=== PATIENT | female | born 1985 | race Caucasian/White ===

== ENCOUNTER 2016-03-17 20:02 | Emergency (ER) | payer MEDICAID, OTHER ==
[~2016-03-17 20:02] MED LIST: MACR100C PO; ZOFR4TAB3 SL
[2016-03-17 20:06] VITALS: BP 110/63; PULSE 108; RESP 16; TEMP 102.6; O2SAT 96
[2016-03-17] MEDS ORDERED: SERT-132 PO (21:06)
--- NOTE | 2016-03-17 21:13 | PD ---
HPI Chief Complaint: Flank/Kidney Pain Time Seen by Provider: 20:59 Travel History International Travel<30 days: No Contact w/Intl Traveler<30days: No Traveled to known affect area: No History of Present Illness HPI 30-year-old female presents to the emergency department for complaint of 3 days of "kidney pain" and fever with chills. Patient is also had dizziness and today 2 episodes of non-bilious [id number] nonbloody emesis. No report of sore throat earache sinus pressure drainage cough congestion chest pain abdominal pain diarrhea dysuria frequency urgency or skin rash. Last menstrual period was 02/19/16 and normal for her patient denies . Patient has had no vaginal discharge or bleeding. Ab1. PFSH Past Medical History Narrative Medical Anxiety depression Ab1 tonsillectomy tobacco use alcohol use nursing notes reviewed Anxiety: Yes Depression: Yes Immunizations Current: Yes : 2 Para: 1 Miscarriage: 1 : 0 Past Surgical History Tonsillectomy: Yes Social History Alcohol Use: Yes (glass wine qd) Tobacco Use: Yes (2 cigarettes/day) Substance Use: No Allergies-Medications (Allergen,Severity, Reaction): Coded Allergies: No Known Allergies (Unverified , 03/17/16) Reported Meds & Prescriptions Reported Meds & Active Scripts Active Reported Sertraline (Sertraline HCl) 50 Mg Tab 50 Mg PO DAILY Review of Systems Except as stated in HPI: all other systems reviewed are Neg General / Constitutional: Positive: Fever, Chills HENT: No: Sore Throat, Congestion Cardiovascular: No: Chest Pain or Discomfort Respiratory: No: Shortness of Breath Gastrointestinal: Positive: Nausea, Vomiting (x2), No: Abdominal Pain, Hematemesis, Hematochezia Genitourinary: Positive: Flank Pain, No: Urgency, Frequency, Dysuria, Hematuria, Pelvic Pain, Discharge, Vaginal Bleeding Musculoskeletal: No: Myalgias, Arthralgias Skin: No Rash Neurologic: No: Weakness Psychiatric: No: Anxiety Hematologic/Lymphatic: No: Lymph Node Enlargement Physical Exam Narrative GENERAL: Well-developed well-nourished female in no acute distress no respiratory distress; triage vital signs remarkable for mild tachycardia heart rate 108 and fever temperature 102.6F SKIN: Warm and dry. HEAD: Normocephalic. EYES: No scleral icterus. No injection or drainage. ENT: Mucous members moist airway is patent no pharyngeal erythema edema or exudative change tympanic membranes no redness dullness or loss of landmarks NECK: Supple, trachea midline. No JVD or lymphadenopathy. No meningismus no nuchal rigidity CARDIOVASCULAR: Regular rate and rhythm without murmurs, gallops, or rubs. RESPIRATORY: Breath sounds equal bilaterally. No accessory muscle use. GASTROINTESTINAL: Abdomen soft, non-tender, nondistended. MUSCULOSKELETAL: No cyanosis, or edema. BACK: Nontender without obvious deformity. Bilateral CVA tenderness to palpation and percussion. Data Data Last Documented VS Vital Signs Date Time Temp Pulse Resp B/P Pulse Ox O2 Delivery O2 Flow Rate FiO2 03/17/16 21:24 100.1 03/17/16 20:06 108 16 110/63 96 Room Air Orders Complete Blood Count With Diff (03/17/16 20:17) Comprehensive Metabolic Panel (03/17/16 20:17) Urinalysis - C+S If Indicated (03/17/16 20:17) Ed Urine Pregnancytest Poc (03/17/16 21:05) Sodium Chlor 0.9% 1000 Ml Inj (Ns 1000 M (03/17/16 21:15) Blood Culture (03/17/16 21:05) Ceftriaxone Inj (Rocephin Inj) (03/17/16 21:15) Acetaminophen (Tylenol) (03/17/16 21:15) Urine Culture (03/17/16 20:34) Ct Abd/Pel W/O Iv Contrast (03/17/16 ) Potassium Chloride (Kcl) (03/17/16 23:00) Ketorolac Inj (Toradol Inj) (03/17/16 23:00) Labs Laboratory Tests Test 03/17/16 03/17/16 20:29 20:34 White Blood Count 9.9 TH/MM3 Red Blood Count 4.11 MIL/MM3 Hemoglobin 12.9 GM/DL Hematocrit 36.4 % Mean Corpuscular Volume 88.6 FL Mean Corpuscular Hemoglobin 31.3 PG Mean Corpuscular Hemoglobin 35.3 % Concent Red Cell Distribution Width 14.3 % Platelet Count 250 TH/MM3 Mean Platelet Volume 7.5 FL Neutrophils (%) (Auto) 66.6 % Lymphocytes (%) (Auto) 4.8 % Monocytes (%) (Auto) 0.0 % Eosinophils (%) (Auto) 28.6 % Basophils (%) (Auto) 0.0 % Neutrophils # (Auto) 6.6 TH/MM3 Lymphocytes # (Auto) 0.5 TH/MM3 Monocytes # (Auto) 0.0 TH/MM3 Eosinophils # (Auto) 2.8 TH/MM3 Basophils # (Auto) 0.0 TH/MM3 CBC Comment AUTO DIFF Sodium Level 136 MEQ/L Potassium Level 3.3 MEQ/L Chloride Level 103 MEQ/L Carbon Dioxide Level 22.2 MEQ/L Anion Gap 11 MEQ/L Blood Urea Nitrogen 8 MG/DL Creatinine 0.64 MG/DL Estimat Glomerular Filtration 108 ML/MIN Rate Random Glucose 103 MG/DL Calcium Level 8.2 MG/DL Total Bilirubin 0.8 MG/DL Aspartate Amino Transf 9 U/L (AST/SGOT) Alanine Aminotransferase 11 U/L (ALT/SGPT) Alkaline Phosphatase 80 U/L Total Protein 7.4 GM/DL Albumin 3.5 GM/DL Urine Color YELLOW Urine Turbidity CLEAR Urine pH 6.0 Urine Specific [place] 1.008 Urine Protein NEG mg/dL Urine Glucose (UA) NEG mg/dL Urine Ketones NEG mg/dL Urine Occult Blood TRACE Urine Nitrite NEG Urine Bilirubin NEG Urine Urobilinogen 2.0 MG/DL Urine Leukocyte Esterase MOD Urine RBC 2 /hpf Urine WBC 19 /hpf Urine Squamous Epithelial 1 /hpf Cells Urine Bacteria RARE /hpf Urine Hyaline Casts 1 /lpf Microscopic Urinalysis Comment CULTURE INDICATED MDM Medical Decision Making Medical Screen Exam Complete: Yes Emergency Medical Condition: Yes Medical Record Reviewed: Yes Interpretation(s) Laboratory Tests Test 03/17/16 03/17/16 20:29 20:34 White Blood Count 9.9 TH/MM3 Red Blood Count 4.11 MIL/MM3 Hemoglobin 12.9 GM/DL Hematocrit 36.4 % Mean Corpuscular Volume 88.6 FL Mean Corpuscular Hemoglobin 31.3 PG Mean Corpuscular Hemoglobin 35.3 % Concent Red Cell Distribution Width 14.3 % Platelet Count 250 TH/MM3 Mean Platelet Volume 7.5 FL Neutrophils (%) (Auto) 66.6 % Lymphocytes (%) (Auto) 4.8 % Monocytes (%) (Auto) 0.0 % Eosinophils (%) (Auto) 28.6 % Basophils (%) (Auto) 0.0 % Neutrophils # (Auto) 6.6 TH/MM3 Lymphocytes # (Auto) 0.5 TH/MM3 Monocytes # (Auto) 0.0 TH/MM3 Eosinophils # (Auto) 2.8 TH/MM3 Basophils # (Auto) 0.0 TH/MM3 CBC Comment AUTO DIFF Sodium Level 136 MEQ/L Potassium Level 3.3 MEQ/L Chloride Level 103 MEQ/L Carbon Dioxide Level 22.2 MEQ/L Anion Gap 11 MEQ/L Blood Urea Nitrogen 8 MG/DL Creatinine 0.64 MG/DL Estimat Glomerular Filtration 108 ML/MIN Rate Random Glucose 103 MG/DL Calcium Level 8.2 MG/DL Total Bilirubin 0.8 MG/DL Aspartate Amino Transf 9 U/L (AST/SGOT) Alanine Aminotransferase 11 U/L (ALT/SGPT) Alkaline Phosphatase 80 U/L Total Protein 7.4 GM/DL Albumin 3.5 GM/DL Urine Color YELLOW Urine Turbidity CLEAR Urine pH 6.0 Urine Specific [place] 1.008 Urine Protein NEG mg/dL Urine Glucose (UA) NEG mg/dL Urine Ketones NEG mg/dL Urine Occult Blood TRACE Urine Nitrite NEG Urine Bilirubin NEG Urine Urobilinogen 2.0 MG/DL Urine Leukocyte Esterase MOD Urine RBC 2 /hpf Urine WBC 19 /hpf Urine Squamous Epithelial 1 /hpf Cells Urine Bacteria RARE /hpf Urine Hyaline Casts 1 /lpf Microscopic Urinalysis Comment CULTURE INDICATED Last Impressions Abdomen/Pelvis CT 03/17/16 0000 Signed Impressions: Service Date/Time: Thursday, March 17, 2016 22:12 - CONCLUSION: Mild constipation. Trace free fluid in the pelvis. No obstruction. No free air. Marshall Jones MD Differential Diagnosis UTI pyelonephritis sepsis viral syndrome dehydration Narrative Course IV access obtained specimens collected and sent for resulting patient administered normal saline 1 L bolus along with Rocephin presumptively for UTI possible pyelonephritis; patient has been taking acetaminophen and ibuprofen as administered by her significant other but does not know the time of her last dose of antipyretic medication. At 10:50 PM patient's clinical improved and stable for outpatient management Diagnosis Primary Impression: UTI (urinary tract infection) Referrals: Primary Care Physician 2 days Patient Instructions: General Instructions Departure Forms: Tests/Procedures, Work Release Special Instructions: no work x 2 days Additional Instructions: Increase fluid hydration Take Tylenol/acetaminophen every 4 hours for fever 100.4F or greater Take ibuprofen/Advil/Motrin every 6-8 hours as needed for fever 100.4F or greater Complete course of antibiotic as prescribed Return to the emergency department for any concerns or change in condition Med/Other Pt SpecificInfo: Prescription(s) given Scripts Phenazopyridine (Pyridium)100 Mg [id number] Mg PO Q8H PRN (DYSURIA) #6 TAB Ref 0 Prov:Yuly Byrnes MD 03/17/16 Ciprofloxacin (Cipro)500 Mg [id number] Mg PO BID 7 Days Ref 0 Prov:Yuly Byrnes MD 03/17/16 Disposition: 01 DISCHARGE HOME Condition: Stable Yuly Byrnes MD Mar 17, 2016 21:13
[2016-03-17] MEDS ORDERED: cefTRIAXone INJ 1,000 MG in SODIUM CHLORIDE 0.9% INJ 100 ML IV ONE (21:15)
[2016-03-17] MEDS ORDERED: ACETAMINOPHEN 325 MG TAB PO ONE (21:15)
[2016-03-17] MEDS ORDERED: SODIUM CHLOR 0.9% 1000 ML INJ 1,000 ML IV ONE (21:15)
[2016-03-17 21:22] LABS: BACTERIA, URINE RARE /hpf; BLOOD, URINE TRACE (NEG); COMMENT (UR) CULTURE INDICATED; CULTURE IF INDICATED CULTURE INDICATED; GLUCOSE,URINE NEG (NEG); HYALINE CAST, URINE 1 /lpf (RARE); KETONE, URINE NEG (NEG); NITRITE,URINE NEG (NEG); SQUAMOUS EPITHELIAL CELL URINE 1 /hpf (0-5); URINE COLOR YELLOW (YELLW/STRAW)
[2016-03-17 21:24] VITALS: TEMP 100.1
[2016-03-17 21:38] LABS: ANION GAP 11 MEQ/L (5-15); AST (GOT) 9 U/L (15-37); BICARBONATE 22.2 MEQ/L (21.0-32.0); BLOOD UREA NITROGEN 8 MG/DL (7-18); CHLORIDE 103 MEQ/L (98-107); GLOMERULAR FILTRATION RATE 108 ML/MIN (>89); POTASSIUM 3.3 MEQ/L (3.5-5.1); SODIUM (NA) 136 MEQ/L (136-145)
[2016-03-17 21:41] LABS: ALKALINE PHOSPHATASE 80 U/L (45-117); ALT (GPT) 11 U/L (10-53); AUTOMATED NEUTROPHIL # 6.6 TH/MM3 (1.8-7.7); EOSINOPHIL # 2.8 TH/MM3 (0-0.4); EOSINOPHIL % 28.6 % (0.0-4.0); HEMATOCRIT 36.4 % (35.0-46.0); LYMPH % 4.8 % (9.0-44.0); LYMPHOCYTE # 0.5 TH/MM3 (1.0-4.8); MEAN CELL VOLUME 88.6 FL (80.0-100.0); MEAN CORPUSCULAR HEMOGLOBIN 31.3 PG (27.0-34.0); MEAN CORPUSCULAR HGB CONC 35.3 % (32.0-36.0); NEUT % 66.6 % (16.0-70.0); PLATELET COUNT 250 TH/MM3 (150-450); RED BLOOD COUNT 4.11 MIL/MM3 (4.00-5.30); RED CELL DISTRIBUTION WIDTH 14.3 % (11.6-17.2); TOTAL BILIRUBIN ADULT 0.8 MG/DL (0.2-1.0); WHITE BLOOD COUNT 9.9 TH/MM3 (4.0-11.0)
[2016-03-17 21:47] LABS: HEMO FLAGS AUTO DIFF
--- NOTE | 2016-03-17 22:41 | RADRPT ---
EXAM DATE/TIME: 03/17/2016 22:12 [facility] COMPARISON: No previous studies available for comparison. INDICATIONS : Right-sided flank pain. ORAL CONTRAST: No oral contrast ingested. RADIATION DOSE: 5.44 CTDIvol (mGy) MEDICAL HISTORY : None SURGICAL HISTORY : None. ENCOUNTER: Initial ACUITY: 1 day PAIN SCALE: 8/10 LOCATION: Right flank TECHNIQUE: Volumetric scanning of the abdomen and pelvis was performed. Using automated exposure control and ad justment of the mA and/or kV according to patient size, radiation dose was kept as low as reasonably achievable to obtain optimal diagnostic quality images. FINDINGS: Lung bases are clear. No acute findings in the liver, spleen, adrenals, kidneys or pancreas. Mild con stipation. Small amount of free fluid in the pelvis. No free air. CONCLUSION: Mild constipation. Trace free fluid in the pelvis. No obstruction. No free air. Marshall Jones MD on March 17, 2016 at 22:37 Board Certified Radiologist. This report was verified electronically.
[2016-03-17] MEDS ORDERED: PHEN0.4T PO (22:50)
[2016-03-17] MEDS ORDERED: CIPR-9 PO (22:50)
[2016-03-17 23:00] VITALS: BP 105/62; PULSE 70; RESP 16; TEMP 98.7; O2SAT 96
[2016-03-17] MEDS ORDERED: KETOROLAC TROMETHAMINE 30 MG/ML (IVP) VIAL IV PUSH ONE (23:00)
[2016-03-17] MEDS ORDERED: POTASSIUM CHLORIDE 20 MEQ CONTROLLED RELEASE TAB PO ONE (23:00)
[2016-03-17 23:59] LABS: BANDS 2 % (0-6); NEUTROPHIL # MANUAL DIFF 8.8 TH/MM3 (1.8-7.7); PLATELET ESTIMATE SMEAR NORMAL (NORMAL); PLATELET MORPHOLOGY NORMAL (NORMAL); POLYS (SEG NEUTROPHILS) 87 % (16-70); SCAN/DIFF FINAL DIFF MANUAL; WBC DIFF SAMPLE 100
== END 2016-03-17 23:29 | disposition home or self-care (01) ==
LOC: NEPC 20:02
DX: N39.0 Urinary tract infection, site not specified (principal); R00.0 Tachycardia, unspecified; K59.00 Constipation, unspecified; R11.2 Nausea with vomiting, unspecified; R10.11 Right upper quadrant pain
CPT/HCPCS: 74176; 80053; 81001; 84703; 85007; 85027; 87040; 87086; 99284; J0696; J7030